=== PATIENT | female | born 1960 | race African-American/Black ===

== ENCOUNTER → 2017-04-24 | Day surgery (SDC) | payer OTHER ==
[~2017-04-24] MED LIST: BUPIVACAINE HCL PF 0.5% 10 ML VIAL ONE; CYCL-36 PO; IBUP-232 PO; KETO10 PO; LACTATED RINGER'S 1000 ML INJ 1,000 ML ONE; LORT7.5T3 PO; MIDAZOLAM HCL 2 MG/2 ML VIAL ONE; MORPHINE SULFATE 2 MG/ML INJ ONE; PROPOFOL 200 MG/20 ML AMP IV ONE; Z.0.NO CURRENT MEDS; ceFAZolin 2 GM PREMIX 50 ML ONE; oxyCODONE/ACETAMINOPHEN 5 MG/325 MG TAB ONE
--- NOTE | 2017-04-24 15:23 | TN ---
cc: TABITHA CARRASCO DATE OF SURGERY 04/24/2017 PRINCIPAL DIAGNOSIS Lobular neoplasia of the right breast. PROCEDURE PERFORMED Right breast needle-localized lumpectomy. SURGEON Tabitha Carrasco. RESEARCH LABORATORY SPECIALIST Carrie Gibbons, MS III. ANESTHESIA General via LMA device. INDICATION The patient is a 56-year-old -[place] female noted to have microcalcifications in the upper outer posterior right breast. Stereotactic biopsy revealed lobular neoplasia and she now presents for needle-localized re-excision of the area. FINDINGS At the time of the procedure the wire traversed approximately 9 cm into the posterior breast close to the muscle. Specimen mammogram did demonstrate an intact wire and the biopsy clip was present in specimen 2. PROCEDURE After informed consent was obtained and site verification was performed, the patient was brought to the radiology suite where she underwent needle localization of her prior biopsy site in the upper outer right breast. She was then brought to the major operating room where she underwent general anesthesia via an LMA device. The right breast was prepped and draped in sterile fashion. She was given a single dose of IV Ancef and sequential compression hose were placed. The periareolar skin was anesthetized and incised sharply at the 10 o'clock location. Blunt dissection was performed until the wire entry point through the skin was identified and secured with a hemostat. The wire was cut off at the skin with pin cutters and a 2-0 silk transfixion suture was placed at the wire entry point into the breast tissue. Sharp and electrocautery dissection was then performed circumferentially around the wire but the specimen did undergo fragmentation as the dissection progressed. Specimen 1 was the more superior specimen and it was oriented with two sutures anteriorly, one short suture superiorly, and one long suture laterally. Specimen 2 was oriented with two sutures anteriorly and one short suture inferiorly and one long suture medially. Specimen 3 was oriented with two sutures anterior and one short suture superiorly. All three specimens were sent separately to radiology and the clip was identified in specimen 2. Each specimen was then sent for permanent pathologic evaluation. Hemostasis was obtained using electrocautery but there was approximately 250 cc of blood loss because of the posterior location of the lesion near the pectoral muscle. Hemostasis was obtained with electrocautery and the wound was closed using 3-0 Vicryl subcutaneous sutures and a 4-0 Monocryl subcuticular suture. Steri-Strips and a sterile dressing were applied. The patient tolerated the procedure well with the blood loss as noted and she was extubated in the operating room and brought to the recovery room in good condition. All sponge and needle counts were correct at the conclusion of the case. MD LIZ [place]/MARLEY /1:36 PM /2:57 PM
== END | disposition home or self-care (01) ==
LOC: ESDC 08:19
PROVIDERS: ATTEND Surgery
DX: D05.01 Lobular carcinoma in situ of right breast (principal)
CPT/HCPCS: 00400; 19125; 88307; J0690; J2250; J2270; J3010; J7120